=== PATIENT | male | born 1955 | race Caucasian/White ===

== ENCOUNTER → 2020-02-22 10:01 | Outpatient (BNVA) | payer MEDICARE, SELFPAY | PROVIDERS: Family Provider Nurse Practitioner; PCP Nurse Practitioner; Visit Provider Nurse Practitioner | DX: E03.8 Other specified hypothyroidism (principal); E55.9 Vitamin D deficiency, unspecified; E11.42 Type 2 diabetes mellitus with diabetic polyneuropathy | CPT/HCPCS: 80053; 80061; 82306; 83036; 84443 ==

== ENCOUNTER → 2020-08-15 11:40 | Outpatient (BNVA) | payer MEDICARE, SELFPAY | PROVIDERS: Family Provider Nurse Practitioner; PCP Nurse Practitioner; Visit Provider Nurse Practitioner | DX: E11.42 Type 2 diabetes mellitus with diabetic polyneuropathy (principal); R45.89 Other symptoms and signs involving emotional state; E03.8 Other specified hypothyroidism; I10 Essential (primary) hypertension; K21.9 Gastro-esophageal reflux disease without esophagitis | CPT/HCPCS: 80053; 80061; 81000; 83036; 84443; 85025 ==

== ENCOUNTER → 2021-02-11 13:56 | Outpatient (BNVA) | payer MEDICARE, SELFPAY | PROVIDERS: Family Provider Nurse Practitioner; PCP Nurse Practitioner; Visit Provider Nurse Practitioner | DX: E11.42 Type 2 diabetes mellitus with diabetic polyneuropathy (principal); E03.8 Other specified hypothyroidism; R45.89 Other symptoms and signs involving emotional state; I10 Essential (primary) hypertension; K21.9 Gastro-esophageal reflux disease without esophagitis; E55.9 Vitamin D deficiency, unspecified | CPT/HCPCS: 80053; 82043; 82306; 83036; 84443; 85025 ==

== ENCOUNTER → 2022-01-30 13:47 | Outpatient (BNVA) | payer MEDICARE, SELFPAY | PROVIDERS: Family Provider Nurse Practitioner; PCP Nurse Practitioner; Visit Provider Nurse Practitioner | DX: E11.42 Type 2 diabetes mellitus with diabetic polyneuropathy (principal); E55.9 Vitamin D deficiency, unspecified; E03.8 Other specified hypothyroidism; R45.89 Other symptoms and signs involving emotional state; I10 Essential (primary) hypertension; K21.9 Gastro-esophageal reflux disease without esophagitis | CPT/HCPCS: 80053; 80061; 82043; 82306; 83036; 84443 ==

== ENCOUNTER → 2022-04-10 11:22 | Outpatient (BNVA) | payer MEDICARE, SELFPAY | PROVIDERS: Family Provider Nurse Practitioner; PCP Nurse Practitioner; Visit Provider Nurse Practitioner | DX: E11.22 Type 2 diabetes mellitus with diabetic chronic kidney disease (principal); I12.9 Hypertensive chronic kidney disease with stage 1 through stage 4 chronic kidney disease, or unspecified chronic kidney disease; N18.2 Chronic kidney disease, stage 2 (mild); E11.42 Type 2 diabetes mellitus with diabetic polyneuropathy; R45.89 Other symptoms and signs involving emotional state; E03.8 Other specified hypothyroidism; K21.9 Gastro-esophageal reflux disease without esophagitis | CPT/HCPCS: 81000 ==

== ENCOUNTER → 2022-08-04 13:46 | Outpatient (BNVA) | payer MEDICARE, SELFPAY | PROVIDERS: Family Provider Nurse Practitioner; PCP Nurse Practitioner; Visit Provider Nurse Practitioner | DX: E11.42 Type 2 diabetes mellitus with diabetic polyneuropathy (principal); R45.89 Other symptoms and signs involving emotional state; E03.8 Other specified hypothyroidism; K21.9 Gastro-esophageal reflux disease without esophagitis; E55.9 Vitamin D deficiency, unspecified; E11.22 Type 2 diabetes mellitus with diabetic chronic kidney disease; I12.9 Hypertensive chronic kidney disease with stage 1 through stage 4 chronic kidney disease, or unspecified chronic kidney disease; N18.2 Chronic kidney disease, stage 2 (mild) | CPT/HCPCS: 80053; 80061; 81000; 82306; 83036; 84443 ==

== ENCOUNTER → 2022-10-27 13:53 | Outpatient (BNVA) | payer MEDICARE, SELFPAY | PROVIDERS: Family Provider Nurse Practitioner; PCP Nurse Practitioner; Visit Provider Nurse Practitioner | DX: E03.8 Other specified hypothyroidism (principal); E11.42 Type 2 diabetes mellitus with diabetic polyneuropathy; E11.22 Type 2 diabetes mellitus with diabetic chronic kidney disease; I12.9 Hypertensive chronic kidney disease with stage 1 through stage 4 chronic kidney disease, or unspecified chronic kidney disease; N18.2 Chronic kidney disease, stage 2 (mild) | CPT/HCPCS: 80053; 81000; 83036 ==

== ENCOUNTER → 2023-01-19 12:46 | Outpatient (BNVA) | payer MEDICARE, SELFPAY | PROVIDERS: Family Provider Nurse Practitioner; PCP Nurse Practitioner; Visit Provider Nurse Practitioner | DX: E11.42 Type 2 diabetes mellitus with diabetic polyneuropathy (principal); E55.9 Vitamin D deficiency, unspecified | CPT/HCPCS: 80053; 81000; 82306; 83036; 84443 ==

== ENCOUNTER → 2023-04-13 13:33 | Outpatient (BNVA) | payer MEDICARE, SELFPAY | PROVIDERS: Family Provider Nurse Practitioner; PCP Nurse Practitioner; Visit Provider Nurse Practitioner | DX: E55.9 Vitamin D deficiency, unspecified (principal); E11.42 Type 2 diabetes mellitus with diabetic polyneuropathy; R45.89 Other symptoms and signs involving emotional state; E03.8 Other specified hypothyroidism; K21.9 Gastro-esophageal reflux disease without esophagitis; I10 Essential (primary) hypertension; K59.01 Slow transit constipation | CPT/HCPCS: 80053; 81000; 82306; 83036; 84443 ==

== ENCOUNTER → 2023-06-22 15:06 | Outpatient (BNVA) | payer MEDICARE, SELFPAY | PROVIDERS: Family Provider Nurse Practitioner; PCP Nurse Practitioner; Visit Provider Nurse Practitioner | DX: E11.42 Type 2 diabetes mellitus with diabetic polyneuropathy (principal); I10 Essential (primary) hypertension; N18.2 Chronic kidney disease, stage 2 (mild) | CPT/HCPCS: 80053; 80061; 81000; 83036 ==

== ENCOUNTER → 2023-09-22 13:57 | Outpatient (BNVA) | payer MEDICARE, SELFPAY | PROVIDERS: Family Provider Nurse Practitioner; PCP Nurse Practitioner; Visit Provider Nurse Practitioner | DX: E11.42 Type 2 diabetes mellitus with diabetic polyneuropathy (principal) | CPT/HCPCS: 80053; 81000 ==

== ENCOUNTER → 2023-12-15 13:21 | Outpatient (BNVA) | payer MEDICARE, SELFPAY | PROVIDERS: Family Provider Nurse Practitioner; PCP Nurse Practitioner; Visit Provider Nurse Practitioner | DX: N18.2 Chronic kidney disease, stage 2 (mild) (principal) | CPT/HCPCS: 81000 ==

== ENCOUNTER → 2024-03-17 13:25 | Outpatient (BNVA) | payer MEDICARE, SELFPAY | PROVIDERS: Family Provider Nurse Practitioner; PCP Nurse Practitioner; Visit Provider Nurse Practitioner | DX: I12.9 Hypertensive chronic kidney disease with stage 1 through stage 4 chronic kidney disease, or unspecified chronic kidney disease (principal); E55.9 Vitamin D deficiency, unspecified; E03.8 Other specified hypothyroidism; N18.2 Chronic kidney disease, stage 2 (mild); Z12.5 Encounter for screening for malignant neoplasm of prostate | CPT/HCPCS: 80053; 80061; 81000; 82306; 84443; G0103 ==

== ENCOUNTER → 2024-06-06 13:29 | Outpatient (BNVA) | payer MEDICARE, SELFPAY | PROVIDERS: Family Provider Nurse Practitioner; PCP Nurse Practitioner; Visit Provider Nurse Practitioner | DX: E11.42 Type 2 diabetes mellitus with diabetic polyneuropathy (principal); E55.9 Vitamin D deficiency, unspecified | CPT/HCPCS: 80048; 83036 ==

== ENCOUNTER → 2024-08-22 13:47 | Outpatient (BNVA) | payer MEDICARE, SELFPAY | PROVIDERS: Family Provider Nurse Practitioner; PCP Nurse Practitioner; Visit Provider Nurse Practitioner | DX: I10 Essential (primary) hypertension (principal); E03.8 Other specified hypothyroidism; N18.2 Chronic kidney disease, stage 2 (mild) | CPT/HCPCS: 80053; 81000; 84443 ==

== ENCOUNTER → 2025-01-23 14:22 | Outpatient (BNVA) | payer MEDICARE, SELFPAY | PROVIDERS: Family Provider Nurse Practitioner; PCP Nurse Practitioner; Visit Provider Nurse Practitioner | DX: E03.8 Other specified hypothyroidism (principal); I10 Essential (primary) hypertension; E55.9 Vitamin D deficiency, unspecified | CPT/HCPCS: 80053; 80061; 82306; 84443; 85025 ==

== ENCOUNTER → 2025-07-17 14:12 | Outpatient (BNVA) | payer MEDICARE, SELFPAY | PROVIDERS: Family Provider Nurse Practitioner; PCP Nurse Practitioner; Visit Provider Nurse Practitioner | DX: I10 Essential (primary) hypertension (principal); R45.89 Other symptoms and signs involving emotional state; E03.8 Other specified hypothyroidism; E55.9 Vitamin D deficiency, unspecified; K21.9 Gastro-esophageal reflux disease without esophagitis; K59.01 Slow transit constipation; N18.2 Chronic kidney disease, stage 2 (mild); F79 Unspecified intellectual disabilities; Z12.5 Encounter for screening for malignant neoplasm of prostate | CPT/HCPCS: 80053; 81000; 84443; G0103 ==